=== PATIENT | male | born 1970 | race Caucasian/White ===

== ENCOUNTER → 2020-04-01 | Outpatient (NON) | payer BC, SELFPAY ==
[2020-04-01 23:01] LABS: SARS-CoV-2 RNA PCR Positive
== END | disposition home or self-care (01) ==
PROVIDERS: PCP Internal Medicine; Visit Provider Nurse Practitioner
DX: U07.1 COVID-19 (principal)
CPT/HCPCS: C9803; U0003; U0005

== ENCOUNTER 2021-07-24 10:51 | Outpatient (CLI) | payer BC, SELFPAY ==
--- NOTE | ~2021-07-24 | CT_ITS ---
EXAMINATION: CT diagnostic chest wo con DATE: 07/24/2021 11:12 INDICATION: Multiple pulmonary nodules TECHNIQUE: Computed tomography (CT) of the chest was performed without intravenous contrast. The dose -length product was 119.88 mGy-cm. Automated exposure control and iterative reconstruction technique were employed. COMPARISON: CT dated 07/05/2018 FINDINGS: Heart size is normal. No significant pleural or pericardial effusion. There are calcified g ranulomas of the thorax and spleen. No thoracic lymphadenopathy. Multiple bilateral noncalcified pulm onary nodules are stable, largest measuring 5 mm in the left lower lobe, image 67. Mild emphysema. No endobronchial lesions. No pneumothorax. No new pulmonary nodules or masses. Mild thoracic spondylosi s. IMPRESSION: 1. Stable bilateral pulmonary nodules, likely benign. Follow-up low dose CT chest in 12 months recomm ended. Reviewed, dictated and finalized at location A. IMPRESSION: 1. Stable bilateral pulmonary nodules, likely benign. Follow-up low dose CT [facility] in 12 months recommended.
== END 2021-07-24 10:52 | disposition home or self-care (01) ==
PROVIDERS: PCP Internal Medicine; Visit Provider Nurse Practitioner
DX: R91.8 Other nonspecific abnormal finding of lung field (principal); M47.814 Spondylosis without myelopathy or radiculopathy, thoracic region; J43.9 Emphysema, unspecified
CPT/HCPCS: 71250

== ENCOUNTER 2021-09-23 00:03 | Day surgery (SDC) | payer BC, SELFPAY ==
[2021-09-16 15:37] VITALS: BMI 27.9
[2021-09-23 06:45] VITALS: BP 118/68; PULSE 64; RESP 16; TEMP 36.3; O2SAT 100; BMI 27.3
[2021-09-23] MEDS: LACTATED RINGERS 1,000 ML 150 ML IV CONT (07:13)
--- NOTE | 2021-09-23 07:19 | P.PNAN_ITS ---
Anes - Initial Pre Proc Eval Procedure: Operation Date: 09/23/21 08:00 Proposed Procedures p Screening Colonoscopy - Damian Larson MD Date/Time: 09/23/21 07:19 Surgeon: Damian Larson MD Pre Op Diagnosis: neoplasm screening Patient Data Age: 51 Gender: M Height: 1.8 m Weight: 88.8 kg Last Vital Signs Temp 36.3 C L 09/23/21 06:45 Pulse 64 09/23/21 06:45 Resp 16 09/23/21 06:45 BP 118/68 09/23/21 06:45 Pulse Ox 100 09/23/21 06:45 O2 Del Method Room Air 09/23/21 06:45 Allergies Allergy/AdvReac Type Severity Reaction Status Date / Time No Known Allergies Allergy Verified 09/23/21 06:57 Home Medications Medication Instructions Recorded Confirmed Type sildenafil 50 mg tablet See Rx Instructions .Route 07/18/21 09/23/21 Rx .COMPLEX #90 tabs sodium sul 1.479 gram-potas ch See Rx Instructions PO PER PKG DIR 07/18/21 09/23/21 Rx 0.188 gram-magnes sul 0.225 gram #24 tabs tablet (Sutab) Patient hx anesthesia problems: none Family hx anesthesia problems: none Results Review: All pre-operative results and documents have been reviewed as part of the pre-operative evaluation. [facility] Past Medical History Medical History Encounter for screening and preventative care Encounter for screening for lipoid disorders Encounter for screening for other metabolic disorders Hyperlipidemia Lesion of penis Leukocytosis Pulmonary nodules Tobacco abuse Surgical History Surgical History H/O: vasectomy 07/03/2021 Family History Family History Mother Lung cancer Sibling Breast cancer Social History Social History Smoking packs per day: 0.5 Smoking cigarettes per day: 10.0 Years smoked: 10 Smoking pack-years: 5.00 Smoking status: Current every day smoker Tobacco type: cigarettes Alcohol intake: current Alcohol use details: occasional Substance use: never Substance use type: does not use Living arrangements: with family Spiritual care concerns: No Anes - Eval Final PreProcedure Day of Procedure 09/23/21 07:19 Patient weight: overweight Heart: regular rate and rhythm Lungs: clear to auscultation Airway: Mallampati scale class II Neurological: alert and oriented Last oral intake: >/= 8 hours ASA classification: II Emergent: no Anesthetic plan: proceed Anesthesia type and monitoring: general GIVS and standard monitoring Results Review: All pre-operative results and documents have been reviewed as part of the pre- operative evaluation. Informed Consent: The patient's anesthetic plan and its attendant risks and benefits were discussed with the patient/family/POA. Questions were solicited and answers provided to the satisfaction of the patient/family/POA.
--- NOTE | 2021-09-23 07:48 | PM.HPGS ---
History of Present Illness History of Present Illness Consent: Risks, benefits, and alternatives have been discussed and questions answered. Patient agrees to proceed with procedure. Chief complaint: neoplasm screening Narrative: Praful Lao is a 51 year old male here for first screening colonoscopy Review of Systems Constitutional: Constitutional: Denies headache(s) and Denies weakness Eyes: Eyes: Denies blurry vision ENT: Reports Normal hearing present, Denies headache(s) and Denies neck pain Cardiovascular: Cardiovascular: Denies chest pain and Denies dyspnea Respiratory: Respiratory: Denies dyspnea Gastrointestinal: Gastrointestinal: Reports no additional gastrointestinal complaints Genitourinary: Genitourinary: Denies dysuria Musculoskeletal: Musculoskeletal: Denies neck pain Integumentary/Breasts: Skin/Breast: Denies dry skin Neurologic: Reports Normal hearing present, Denies headache(s) and Denies weakness Psychiatric: Psychiatric: Denies anxiety Endocrine: Endocrine: Denies change in body appearance Hematologic/Lymphatic: Hematologic/Lymphatic: Denies easy bleeding Allergic/Immunologic: Allergic/Immunologic: Denies urticaria PMF Past Medical History Medical History Encounter for screening and preventative care Encounter for screening for lipoid disorders Encounter for screening for other metabolic disorders Hyperlipidemia Lesion of penis Leukocytosis Pulmonary nodules Tobacco abuse Surgical History Surgical History H/O: vasectomy 07/03/2021 Family History Family History Mother Lung cancer Sibling Breast cancer Social History Social History Smoking packs per day: 0.5 Smoking cigarettes per day: 10.0 Years smoked: 10 Smoking pack-years: 5.00 Smoking status: Current every day smoker Tobacco type: cigarettes Alcohol intake: current Alcohol use details: occasional Substance use: never Substance use type: does not use Living arrangements: with family Spiritual care concerns: No Meds Home Medications and Allergies Home Medications Medication Instructions Recorded Confirmed Type sildenafil 50 mg tablet See Rx Instructions .Route 07/18/21 09/23/21 Rx .COMPLEX #90 tabs sodium sul 1.479 gram-potas ch See Rx Instructions PO PER PKG DIR 07/18/21 09/23/21 Rx 0.188 gram-magnes sul 0.225 gram #24 tabs tablet (Sutab) Allergies Allergy/AdvReac Type Severity Reaction Status Date / Time No Known Allergies Allergy Verified 09/23/21 06:57 Vital Signs Vital Signs - 24 hr 09/23/21 06:45 Temperature 97.4 F L Pulse Rate 64 Respiratory Rate 16 Blood Pressure 118/68 Pulse Oximetry 100 Oxygen Delivery Room Air Exam Const: General: comfortable and no acute distress HENMT: General nose exam: Normal nares present Eyes: General: appearance normal, both eyes and all related structures Neck: Neck: no JVD Resp: Auscultation: clear to auscultation bilaterally Cardio: Rate: regular rate Rhythm: regular rhythm GI: Inspection: non-distended GI Palp: Yes Soft to palpation Skin: General skin exam: normal color Neuro: General: gait normal Speech: normal speech Extrem: General: normal to inspection Psych: Mental Status: mental status grossly normal Assessment and Plan Assessment and plan (1) Screening for colon cancer: Code(s): Z12.11 - Encounter for screening for malignant neoplasm of colon Status: Acute Assessment and Plan: colonoscopy
[2021-09-23 08:04] VITALS: BP 92/50; PULSE 55; RESP 20; O2SAT 96
[2021-09-23 08:14] VITALS: BP 110/74; PULSE 63; RESP 18; O2SAT 98
[2021-09-23 08:24] VITALS: BP 113/75; PULSE 60; RESP 18; O2SAT 100
== END 2021-09-23 08:31 | disposition home or self-care (01) ==
PROVIDERS: PCP Internal Medicine; Visit Provider Internal Medicine Gastroenterology
PROC: 0DJD8ZZ Inspection of Lower Intestinal Tract, Via Natural or Artificial Opening Endoscopic (ICD-10-PCS; CPT 45378; principal; 2021-09-23 08:00)
DX: Z12.11 Encounter for screening for malignant neoplasm of colon (principal); D12.3 Benign neoplasm of transverse colon; K64.8 Other hemorrhoids; E78.5 Hyperlipidemia, unspecified; R91.1 Solitary pulmonary nodule; D72.829 Elevated white blood cell count, unspecified; F17.210 Nicotine dependence, cigarettes, uncomplicated
CPT/HCPCS: 45380; 88305; J2704; J7120

== ENCOUNTER 2021-11-13 13:25 | Outpatient (CLI) | payer BC, SELFPAY ==
--- NOTE | ~2021-11-13 | MR_ITS ---
EXAMINATION: MR cervical spine wo con DATE: 11/13/2021 13:58 INDICATION: Cervical radiculopathy. TECHNIQUE: Magnetic resonance imaging (MRI) of the cervical spine was performed without intravenous c ontrast. Sequences included sagittal T2-weighted FSE, sagittal T2-weighted FS FSE, sagittal T1-weight ed FSE, axial MERGE, and axial T2-weighted FSE. COMPARISON: None FINDINGS: There is hypolordosis of cervical spine. Vertebral body heights are normal. There is mildly decreased disc height at C4-C5 and C5-C6 and moderately decreased disc height at C6-C7. The spinal c ord signal intensity is normal. The following disc levels are specifically discussed: C2-C3: There is a central protrusion. There is no uncovertebral joint osteoarthritis. There is mild b ilateral facet joint osteoarthritis. There is no neural foraminal stenosis. There is no central canal stenosis. C3-C4: There is a central protrusion. There is mild bilateral uncovertebral joint osteoarthritis. The re is mild bilateral facet joint osteoarthritis. There is mild bilateral neural foraminal stenosis. T here is mild central canal stenosis with ventral indentation of the spinal cord. C4-C5: The disc is bulging. There is moderate bilateral uncovertebral joint osteoarthritis. There is no facet joint osteoarthritis. There is mild right and moderate left neural foraminal stenosis. There is mild central canal stenosis with ventral indentation of the spinal cord. C5-C6: The disc is bulging. There is moderate bilateral uncovertebral joint osteoarthritis. There is mild bilateral facet joint osteoarthritis. There is moderate right and mild left neural foraminal radha nosis. There is mild central canal stenosis with ventral indentation of the spinal cord. C6-C7: The disc is bulging with superimposed right central extrusion. There is mild bilateral uncover tebral joint osteoarthritis. There is moderate bilateral facet joint osteoarthritis. There is moderat e right and mild left neural foraminal stenosis. There is moderate central canal stenosis with ventra l and dorsal indentation of the spinal cord. C7-T1: The disc does not extend beyond the endplate margin. There is no uncovertebral joint osteoarth ritis. There is mild bilateral facet joint osteoarthritis. There is mild left neural foraminal stenos is. There is no central canal stenosis. IMPRESSION: 1. Moderate cervical spondylosis. Reviewed, dictated and finalized at location A.
== END 2021-11-13 13:26 | disposition home or self-care (01) ==
PROVIDERS: PCP Internal Medicine; Visit Provider Nurse Practitioner
DX: M62.58 Muscle wasting and atrophy, not elsewhere classified, other site (principal); M47.22 Other spondylosis with radiculopathy, cervical region
CPT/HCPCS: 72141

== ENCOUNTER 2023-03-16 16:13 | Outpatient (CLI) | payer BC, SELFPAY ==
--- NOTE | ~2023-03-16 | CT_ITS ---
. EXAMINATION: CT brain wo con DATE: 03/16/2023 16:25 INDICATION: Aphasia For 2 days. TECHNIQUE: Computed tomography (CT) of the head was performed without intravenous contrast. The mA wa s adjusted according to patient size. Iterative reconstruction technique was employed. Exam dose: 72 6.40 mGy-cm total exam DLP. COMPARISON: None FINDINGS: Mild calcified intracranial atherosclerosis. No intracranial mass lesion or hemorrhage or cerebrovascular accident is evident. No midline shift or mass effect. Normal boyce-white matter differentiation. No subdural or epidural hematoma is detected. There is patchy soft tissue thickening of the frontoethmoid areas and ethmoid air cells bilaterally. The included paranasal sinuses are otherwise unremarkable. The mastoid air cells are normally develop ed and aerated bilaterally. No fracture or bone destruction of the cranial vault. IMPRESSION: Mild calcified intracranial atherosclerosis No acute intracranial finding Reviewed, dictated and finalized at Location A. Reviewed, dictated and finalized at location L. LS INSPECTOR
== END 2023-03-16 16:14 ==
LOC: GOSHIMG 16:14
PROVIDERS: PCP Clinical Nurse Specialist; Visit Provider Clinical Nurse Specialist
DX: R47.01 Aphasia (principal); I67.2 Cerebral atherosclerosis
CPT/HCPCS: 70450

== ENCOUNTER 2023-03-17 08:28 | Outpatient (CLI) | payer BC, SELFPAY ==
[2023-03-17 09:26] LABS: Appearance Urine Clear (Clear); Bilirubin Urine Negative (Negative); Blood Urine Negative (Negative); Color Urine Yellow (Yellow); Glucose Urine UA Negative (Negative); Ketones Urine Negative (Negative); Leukocyte Esterase Ur Negative LEU/UL (Negative); Nitrate Urine Negative (Negative); Protein Urine Negative (Negative); Specific Grav Ur 1.016 (1.001-1.035); Urobilinogen Urine 0.2 mg/dL (<2.0); pH Urine 5.5 (5.0-9.0)
[2023-03-17 09:52] LABS: Basophils Absolute Auto 0.1 K/mm3 (0.0-0.1); Basophils Percent Auto 1.2 % (0.2-1.2); Eosinophils Absolute Auto 0.5 K/mm3 (0-0.3); Eosinophils Percent Auto 7.2 % (0-4.4); Hematocrit 46.6 % (42.0-52.0); Hemoglobin 15.7 g/dL (14.0-18.0); Immature Granulocyte Absolute 0.03 K/mm3 (0.00-0.031); Immature Granulocyte Percent A 0.5 % (0-0.5); Lymphocytes Absolute Auto 1.79 K/mm3 (0.9-3.2); Lymphocytes Percent Auto 27.3 % (18.3-44.2); Mean Corpuscular HGB Conc 33.7 g/dl (32-36); Mean Corpuscular Hemoglobin 30.5 pg (26-34); Mean Corpuscular Volume 90.5 fl (80-100); Mean Platelet Volume 10.7 fl (7.4-10.4); Monocytes Absolute Auto 0.8 K/mm3 (0.1-0.6); Monocytes Percent Auto 12.4 % (2.6-8.5); Neutrophils Absolute Auto 3.4 K/mm3 (1.3-6.7); Neutrophils Percent Auto 51.4 % (45.5-73.1); Platelet Count Result 265 k/mm3 (150-375); Red Blood Count 5.15 M/mm3 (4.6-6.20); Red Cell Distribution Width 12.5 % (11.5-14.5); White Blood Count 6.6 K/mm3 (4.5-10.0)
[2023-03-17 09:58] LABS: Add Urine Microscopic? NO
[2023-03-17 10:04] LABS: Alanine Aminotransferase 27 U/L (6-50); Albumin Level 3.9 g/dL (3.5-5.1); Alkaline Phosphatase 47 U/L (38-126); Anion Gap 5 mmol/L (8-16); Aspartate Amino Transferase 29 U/L (17-59); Bilirubin,Total 0.9 mg/dL (0.2-1.3); Blood Urea Nitrogen 9 mg/dL (9-20); Calcium 9.1 mg/dL (8.4-10.2); Carbon Dioxide 27 mmol/L (22-30); Chloride 107 mmol/L (98-107); Cholesterol 215 mg/dL (0-200); Estimated Glomerular Filt Rate > 60; Glucose 87 mg/dL (65-110); HDL Direct 41 mg/dL; Potassium 4.4 mmol/L (3.4-5.0); Sodium 139 mmol/L (137-145); Triglycerides 105 mg/dL (<150)
[2023-03-17 10:15] LABS: LDL Cholesterol Direct 136 mg/dL
[2023-03-17 10:35] LABS: Prostate Specific Antigen 1.4 ng/mL (< OR = 4.0); Thyroid Stimulating Hormone 0.689 uIU/mL (0.465-4.680)
== END 2023-03-17 08:29 | disposition home or self-care (01) ==
LOC: ANHLAB 08:29
PROVIDERS: PCP Clinical Nurse Specialist; Visit Provider Clinical Nurse Specialist
DX: Z12.5 Encounter for screening for malignant neoplasm of prostate (principal); G45.9 Transient cerebral ischemic attack, unspecified; E78.5 Hyperlipidemia, unspecified
CPT/HCPCS: 36415; 80053; 80061; 81003; 84153; 84443; 85025; G0103

== ENCOUNTER 2023-03-29 12:41 | Outpatient (CLI) | payer BC, SELFPAY ==
--- NOTE | 2023-03-29 12:50 | ECHO_ITS ---
Patient Info Name: Praful Lao Age: 52 years : 1970 Gender: Male Ht: 70 in Wt: 228 lbs BSA: 2.29 m2 HR: 68 bpm BP: 129 / 72 mmHg Heart Rhythm: Sinus Rhythm Technical Quality: Fair Exam Date: 03/29/2023 12:59 PM Exam Location: Echo Lab Patient Status: Outpatient Admit Date: 03/29/2023 Staff Ordering Physician: Frances Jane-Katiuska Pulmonary Nurse Practitioner: Tammi Cavanaugh RDCS Attending Provider: Yao Brock DO Referring Physician: Lucinda CORREA; Exam Type: CA echo doppler color flow Study Info Indications - APHASIA Complete two-dimensional, color flow and Doppler transthoracic echocardiogram is performed. Summary 1. Complete two-dimensional, color flow and Doppler transthoracic echocardiogram is performed. 2. Left ventricular chamber dimension is normal. 3. Left ventricular systolic function is normal, estimated at 60-65%. 4. There is mild concentric increased left ventricular wall thickness. 5. The left ventricular diastolic function is normal. 6. No pulmonary hypertension, estimated pulmonary arterial systolic pressure is 23 mmHg. Left Ventricle Tissue doppler E/e' is not performed. Left ventricular chamber dimension is normal. Left ventricular systolic function is normal, estimated at 60-65%. There is mild concentric increased left ventricular wall thickness. The left ventricular diastolic function is normal. Right Ventricle Right ventricular systolic function is normal and with normal TAPSE 2.0 cm.. Right ventricular chamber dimension is normal. Left Atria Left atrial chamber dimension is normal. Right Atria Right atrial chamber dimension is normal. Aortic Valve The aortic valve is trileaflet. There is no aortic valve stenosis. There is no aortic valve regurgitation. Pulmonic Valve There is no pulmonic regurgitation. Mitral Valve There is no mitral valve stenosis. There is no mitral valve regurgitation. Tricuspid Valve There is no tricuspid valve regurgitation. No pulmonary hypertension, estimated pulmonary arterial systolic pressure is 23 mmHg. Pericardium/Pleural There is no pericardial effusion. Inferior Vena Cava Normal inferior vena cava with >50% collapse upon inspiration consistent with normal right atrial pressure, 5 mmHg. Aorta The aortic root size at the sinus of Valsalva is normal. Left Ventricular Outflow Tract Name Value Normal LVOT 2D LVOT Diameter 2.0 cm LVOT Doppler LVOT Peak Gradient 8 mmHg LVOT Mean Gradient 3 mmHg LVOT VTI 24 cm LVOT VTI/AV VTI Ratio 0.8 LVOT Stroke Volume 76 ml LVOT CO 4.6 l/min LVOT CI 2.0 l/min/m2 Pulmonic Valve Name Value Normal RVOT Doppler RVOT Peak Gradient 3 mmHg PV Doppler
== END 2023-03-29 12:42 | disposition home or self-care (01) ==
LOC: ANHCARD 12:45
PROVIDERS: PCP Clinical Nurse Specialist; Visit Provider Internal Medicine
DX: G45.9 Transient cerebral ischemic attack, unspecified (principal); R47.01 Aphasia
CPT/HCPCS: 93306

== ENCOUNTER 2023-03-30 06:39 | Outpatient (CLI) | payer BC, SELFPAY ==
--- NOTE | ~2023-03-30 | MR_ITS ---
EXAMINATION: MR brain/brain stem wo/w con DATE: 03/30/2023 07:52 INDICATION: Aphasia. TECHNIQUE: Magnetic resonance imaging (MRI) of the brain and brainstem was performed without and with 20 mL MultiHance intravenous contrast. COMPARISON: Head CT 03/16/2023 FINDINGS: There are scattered areas of nonspecific increased T2-weighted signal intensity in the cere bral white matter, which is within normal limits for the patient's age. There is no intracranial hemo rrhage or abnormal intracranial mass lesion. There is an old lacunar infarct in left thalamus. There is cortical increased T2-weighted signal intensity and contrast enhancement in left parietal lobe, co nsistent with subacute infarct. The ventricles are normal in size. There is mucosal thickening in the paranasal sinuses. The mastoid air cells are normal. The orbits are normal. IMPRESSION: 1. Subacute infarct in left parietal lobe. 2. 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 Reviewed, dictated and finalized at location A. WASHER
== END 2023-03-30 06:40 | disposition home or self-care (01) ==
LOC: ANHIMG 06:40
PROVIDERS: PCP Clinical Nurse Specialist; Visit Provider Clinical Nurse Specialist
DX: R47.01 Aphasia (principal); G45.9 Transient cerebral ischemic attack, unspecified; I63.81 Other cerebral infarction due to occlusion or stenosis of small artery
CPT/HCPCS: 70553; A9577

== ENCOUNTER 2023-04-07 08:39 | Outpatient (CLI) | payer BC, SELFPAY ==
--- NOTE | 2023-04-12 11:35 | WPDHOLTEREM ---
Holter/Event Monitor Holter/Event Monitor Date of procedure: 04/07/23 Holter/Event Procedure: 48 Hr Holter Monitor Indications: Cerebral infarction Conclusion: 1. 48 hour holter monitor on 04/07/23. 2. Predominant rhythm is sinus rhythm. HR range 44-133 bpm; average HR 73 bpm. HR at 44 bpm was at 05:49. 3. There are 387 premature supraventricular complexes, 3 supraventricular couplets and 31 supraventricular trigeminy. There are 9 episodes of atrial tachycardia, fastest at 169 bpm and longest lasting 6 beats. 4. There are 21 premature ventricular complexes. NO ventricular tachycardia. 5. No sinoatrial or atrioventricular blocks. No significant pauses greater than 2 seconds. 6. No symptoms available for correlation.
== END 2023-04-07 08:40 | disposition home or self-care (01) ==
PROVIDERS: PCP Clinical Nurse Specialist; Visit Provider Clinical Nurse Specialist
DX: I63.9 Cerebral infarction, unspecified (principal)
CPT/HCPCS: 93225; 93226

== ENCOUNTER 2023-04-19 15:43 | Outpatient (CLI) | payer BC, SELFPAY ==
--- NOTE | ~2023-04-19 | XR_ITS ---
EXAM: XR knee RT 3V, XR knee LT 3V DATE: 04/19/2023 16:14 HISTORY: M25.569 - Pain in unspecified knee . COMPARISON: None available. FINDINGS: Normal mineralization. No fracture or dislocation. No lytic or blastic lesion. Mild bilate ral medial and patellofemoral osteophytosis. Mild bilateral medial joint space narrowing. Small volum e bilateral knee joint fluid collections. No erosion or periosteal change. Soft tissues within normal limits. IMPRESSION: Mild bilateral bicompartmental osteoarthritis. Small bilateral knee joint effusions. Reviewed, dictated and finalized at location K. GER PHILOSOPHY IMPRESSION: Mild bilateral bicompartmental osteoarthritis. Small bilateral knee joint effusions.
== END 2023-04-19 15:44 ==
PROVIDERS: PCP Internal Medicine; Visit Provider Clinical Nurse Specialist
DX: M17.0 Bilateral primary osteoarthritis of knee (principal); M25.462 Effusion, left knee; M25.461 Effusion, right knee
CPT/HCPCS: 73562

== ENCOUNTER 2023-04-22 14:06 | Outpatient (CLI) | payer BC, SELFPAY ==
--- NOTE | ~2023-04-22 | US_ITS ---
EXAMINATION: US carotid duplex BI DATE: 04/22/2023 14:38 INDICATION: TECHNIQUE: Grayscale, color Doppler, and pulsed Doppler images of the cervical carotid arteries were obtained. The degree of vessel stenosis is placed in one of the following categories: normal, <50%, 5 0-69%, >=70% but less than near-occlusion, near-occlusion, or total occlusion. Note that percent sten osis relative to normal distal artery lumen diameter is indirectly measured from velocity measurement s as described by Rashad, et al. Radiology 2003; 229:340-346. Notes: Normal: Peak systolic velocity <125 centimeters/sec and no plaque <50%. Peak systolic velocity <125 ( EDV <40; ICA/CCA PSV ratio <2.0; used these factors only a tandem lesions or low cardiac output or co ntralateral disease) 50-69 %: PSV 125-230 (EDV 40-100; ratio 2-4) >= 70% but less than near occlusion: PSV greater than 230 (EDV > 100; ratio> 4.0) Near Occlusion: PSV that is variable; markedly narrowed lumen Occlusion: Absent flow on color/spectral Doppler and no lumen on boyce scale. COMPARISON: None. FINDINGS: RIGHT: The right common carotid artery (CCA) peak systolic velocity (PSV) is 113 cm/s. The right internal ca rotid artery (ICA) PSV is 144 cm/s. The right ICA end-diastolic velocity (EDV) is 32 cm/s. The right ICA/CCA PSV ratio is 1.3. The external carotid artery (ECA) PSV is 100 cm/s. There is antegrade flow in the right vertebral artery. LEFT: The left CCA PSV is 153 cm/s. The left ICA PSV is 96 cm/s. The left ICA EDV is 27 cm/s. The left ICA/ CCA PSV ratio is 0.6. The ECA PSV is 106 cm/s. There is antegrade flow in the left vertebral artery. IMPRESSION: 1. 50-69% stenosis in the right internal carotid artery by sonographic criteria. 2. Less than 50% stenosis in the left internal carotid artery by sonographic criteria. Reviewed, dictated and finalized at location A. NCT PHYSICS INSTRUCTOR IMPRESSION: 1. 50-69% stenosis in the right internal carotid artery by sonographic criteria . 2. Less than 50% stenosis in the left internal carotid artery by sonographic cr iteria.
== END 2023-04-22 14:07 | disposition home or self-care (01) ==
PROVIDERS: PCP Internal Medicine; Visit Provider Clinical Nurse Specialist
DX: I65.23 Occlusion and stenosis of bilateral carotid arteries (principal); R47.01 Aphasia
CPT/HCPCS: 93880

== ENCOUNTER 2023-05-19 08:29 | Outpatient (CLI) | payer BC, SELFPAY ==
--- NOTE | 2023-05-19 08:44 | ECHO_ITS ---
Patient Info Name: Praful Lao Age: 52 years : 1970 Gender: Male Ht: 71 in Wt: 224 lbs BSA: 2.28 m2 HR: 78 bpm BP: 136 / 75 mmHg Technical Quality: Fair Exam Date: 05/19/2023 8:55 AM Exam Location: Echo Lab Patient Status: Outpatient Admit Date: 05/19/2023 Staff Ordering Physician: Frances Jane Laboratory Inspector: Lesley Polanco RDCS Attending Provider: Frances Jane Referring Physician: Lucinda CORREA; Exam Type: CA echo limited w bubble study Study Info Indications - CVA Limited two-dimensional transthoracic echocardiogram is performed with agitated saline. Contrast/Agitated Saline Contrast/Ag. Saline: Agitated Saline Amount: 18.00 ml Administered By: Lesley Polanco [facility] Existing IV Access: Yes New IV Access: Left Site Condition: IV removed Summary 1. Technically limited study to perform bubble study. 2. Agitated saline injection with and without valsalva maneuver opacified right side cardiac chambers without obvious shunt to left side cardiac chambers. Atrial Septum Agitated saline injection with and without valsalva maneuver opacified right side cardiac chambers without obvious shunt to left side cardiac chambers. Technically limited study to perform bubble study. Intact interatrial septum visualized by 2D and agitated saline imaging. Report Signatures
== END 2023-05-19 08:30 | disposition home or self-care (01) ==
LOC: ANHCARD 08:31
PROVIDERS: PCP Internal Medicine; Visit Provider Clinical Nurse Specialist
DX: I63.9 Cerebral infarction, unspecified (principal)
CPT/HCPCS: 93308; 96375

== ENCOUNTER 2023-07-21 00:41 | Day surgery (SDC) | payer BC, SELFPAY ==
[2023-07-15 15:07] VITALS: BMI 32.3
--- NOTE | 2023-07-15 15:29 | PC.NURSE ---
Addendum entered by Orin Ann RN 07/16/23 11:35: PT CONTACTED AND INFORMED NOTHING TO EAT/DRINK AFTER MN DAY OF SURGERY - UNDERSTANDING VOICED Original Note: Report to the Outpatient Waiting Room, entrance under the green pavilion located off [facility], at time __7:30AM on date __07/21/23 . Planned Procedure Time: __9:30AM . Time changes happen often and if your time is changed the preop area will call you the afternoon before. - You and your visitor will be asked to self-screen and do not enter if you have any COVID symptoms. - A mask is optional within the hospital at this time. Patients may have clear liquids (water, carbonated beverages, clear teas, apple juice) until 3 hours prior to surgery with a maximum of 20 ounces. - No food from midnight until time of surgery - Infants may have breast milk until 4 hours before surgery, infant formula 6 hours prior to surgery. - Children will be allowed to drink immediately following surgery. If applicable, please bring a bottle or sippy cup to assist with drinking. Juice, water, soda, and popsicles are readily available. For infants on formula, please bring formula the day of surgery. Pacifiers are allowed. Take the following medications with a SIP of water the morning of surgery: NONE DO NOT STOP ANY OF YOUR OTHER PRESCRIPTION MEDICATIONS PRIOR TO SURGERY ?EXCEPT THE FOLLOWING Medications to discontinue per physician ___HOLD ASPIRIN PER DR ÁLVAREZ- PATIENT WILL CALL MD OFFICE TO VERIFY. HOLD ALL VITAMINS/SUPPLEMENTS 3 DAYS PRE-OP PER ANESTHESIA Date to take last dose____07/17/23 Please no make-up, nail malay, hairspray, perfume, deodorant, or body powder the day of surgery. No jewelry (including any body piercings) or valuables the day of surgery, leave them at home. Please take a shower or bath the night before, or the morning of, surgery with an antibacterial soap. Wear comfortable, loose fitting clothing. Children are encouraged to wear pajamas. - Jewelry must be removed prior to entering the operating room. Rings and piercings that are not removed may be cut off. - The hospital will not accept responsibility for valuables. - Please leave all valuables, including medications, at home the day of surgery. If you are going home after surgery, a licensed dolly driver must drive you home. - NO public transportation without another adult if you receive anesthesia. - We recommend that an adult stay with you for 24 hours following discharge. - We also recommend that you do not drive, make important decision, drink alcoholic beverages, or take any drugs that were not prescribed by your health care provider for at least 24 hours after your discharge time. For Pediatric surgeries, we recommend two adults accompany the child home. Follow any additional instructions given to you from your surgeon. If you or anyone in your household have experienced Covid symptoms in the past week, please notify your surgeon or the nurse liaison at the phone number below for possible testing. Telephone instructions given to ____PATIENT and asked if any additional questions and then verbalized understanding. Patient advised to call surgeon office or pre surgery nurse liaison [phone] if any additional questions.
--- NOTE | 2023-07-21 07:04 | PM.HPGS ---
History of Present Illness History of Present Illness Chief complaint: right middle trigger finger Narrative: Patient seen and examined in pre-operative holding area. No interval change in medical history or symptoms. Patient recalls previous discussion of benefits and alternatives to procedure. Continues to desire to proceed with right middle finger a1 corby release. Reviewed procedure, post-op expectations and risks including but not limited to bleeding, infection, injury to tendon/nerve/vessel, decreased hand function, stiffness, RSD, no change or worsening of symptoms. I discussed the possible use of assistants and their participation in the case. Patient stated understanding and signed the consent form wishing to proceed. Review of Systems Review of Systems: All systems reviewed & are unremarkable except as noted in HPI and below PMFSH Past Medical History Medical History (Updated 07/21/23 @ 08:28 by Miki Grimes DO) CVA (cerebral vascular accident) Subacute infarct in left parietal lobe. 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 Encounter for screening and preventative care Encounter for screening for lipoid disorders Encounter for screening for other metabolic disorders Hyperlipidemia Lesion of penis Leukocytosis Pulmonary nodules Tobacco abuse Surgical History Surgical History H/O: vasectomy 07/03/2021 History of shoulder surgery left Family History Family History Mother Lung cancer Sibling Breast cancer Social History Social History (Updated 04/29/23 @ 14:30 by Meghan Aponte CMA) Smoking packs per day: 1 Smoking cigarettes per day: 20.0 Years smoked: 25 Smoking pack-years: 25.00 Smoking status: Current every day smoker Tobacco type: e-cigarettes/vaping Smoking end date: 08/29/21 Additional smoking assessment comments: QUIT CIG-2021, DAILY VAPING (MEDIUM STRENGTH NICOTINE) Alcohol intake: current Alcohol use details: occasional Substance use: never Substance use type: does not use Do You Feel Safe in your Home?: Yes Lack of Transportation: No Lack of Food: Never True Current Housing: I Have Housing Concerned About Future Housing: No Difficulty Paying Gas/Electric Bills: No Difficulty Paying for Meds: No Currently Unemployed: No Education: Trade/Vocational Certificate Difficulty w/ Childcare or Family Care: No Living arrangements: with family Additional living arrangements comments: [employer] KIDS Occupation/Education: occupation 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 Spiritual care concerns: No Meds Home Medications and Allergies Home Medications Medication Instructions Recorded Confirmed Type cyclobenzaprine 10 mg tablet 10 mg PO BID PRN muscle spasm #30 06/12/22 07/15/23 Rx tabs aspirin 81 mg tablet,delayed 81 mg PO DAILY 03/30/23 07/15/23 History release glucosamine sulfate 500 mg tablet 3,000 mg PO DAILY 04/29/23 07/21/23 History (Glucosamine) atorvastatin 80 mg tablet 80 mg PO QHS #90 tabs 06/25/23 07/15/23 Rx famotidine 20 mg tablet (Pepcid AC) 20 mg PO DAILY PRN Indigestion 07/15/23 07/15/23 History tramadol 50 mg tablet 50 mg PO Q6H PRN pain #8 tabs 07/21/23 Rx Allergies Allergy/AdvReac Type Severity Reaction Status Date / Time No Known Allergies Allergy Verified 07/21/23 08:08 Exam Narrative: unchanged Assessment and Plan Assessment and plan (1) Trigger middle finger of right hand: Code(s): M65.331 - Trigger finger, right middle finger Status: Acute Assessment and Plan: cont as above
--- NOTE | 2023-07-21 07:05 | P.OP_ITS ---
Procedure Note - Detailed Date of Procedure 07/21/23 Pre-op Diagnosis right middle trigger finger Post-op Diagnosis Same Procedure Performed right middle finger a1 corby release Surgeon Perico Lopez MD [employer] alfredo de la paz pa-c Anesthesia MAC Description of Procedure INFORMED CONSENT: The patient was seen and examined and marked in the pre-op area.? The patient signed the consent form. PROCEDURE IN DETAIL:The patient taken back to OR on the stretcher in supine position. Time out performed with anesthesia, surgeon and staff agreeing on patient's name site and surgery to be performed SCDs were placed on the lower extremities and inflated. A tourniquet was placed on {right} upper extremity and antibiotics given IV After anesthesia administered sedation I injected {5}cc 1%lido and 0.5% marcaine plain at the operative site The?{right upper extremity}?was prepped and draped in sterile fashion the??{right upper extremity} was? exsanguinated with Esmarch bandage and tourniquet inflated to 250mmHg I made a longitudinal incision over the right middle finger a1 corby with 15 blade through skin and dermis. Littler scissors were used to spread down to the a1 corby. The a1 corby was identified and partially incised with a 15 blade scalpel. Littler scissors were then used to spread above and below it proximally and distally and the incision was completed entirely. The FDS and FDP tendons were inspected with a ragnell retractor and free of masses, synovitis and gliding smoothly in the sheath without crepitus or triggering. They were allowed to withdraw back into the incison which was irrigated with normal saline and closued with 4-0 chromic. A dressing of xerofrom, 4x4, jett, and an edward bandage was applied after the tourniquet was let down noting the hand was warm and well perfused. The patient was then awaken from anesthesia and transferred to the recovery room in stable condition.? Complications - none EBL- 0cc Disposition - home in stable conditions Alfredo De La Paz PA-C was essential for positioning, retraction, closure and dressing placement [facility] Billing Surgery - Charge Forward: Surgery Billing ([id number] for alfredo)
[2023-07-21 07:27] VITALS: BP 102/68; PULSE 62; RESP 16; TEMP 36.7; O2SAT 99
[2023-07-21 07:30] VITALS: BMI 31.9
[2023-07-21] MEDS: LACTATED RINGERS 1,000 ML 30 ML IV CONT (08:00)
--- NOTE | 2023-07-21 08:18 | WPDANESEPPF ---
Anes - Initial Pre Proc Eval Procedure: Operation Date: 07/21/23 09:30 Proposed Procedures p Right Middle Finger A-1 Andrez Release - Perico Lopez MD Date/Time: 07/21/23 08:18 Surgeon: Perico Lopez MD Pre Op Diagnosis: right middle trigger finger Patient Data Age: 52 Gender: M Height: 1.8 m Weight: 104 kg Last Vital Signs Temp 36.7 C 07/21/23 07:27 Pulse 62 07/21/23 07:27 Resp 16 07/21/23 07:27 BP 102/68 07/21/23 07:27 Pulse Ox 99 07/21/23 07:27 O2 Del Method Room Air 07/21/23 07:27 Allergies Allergy/AdvReac Type Severity Reaction Status Date / Time No Known Allergies Allergy Verified 07/21/23 08:08 Home Medications Medication Instructions Recorded Confirmed Type cyclobenzaprine 10 mg tablet 10 mg PO BID PRN muscle spasm #30 06/12/22 07/15/23 Rx tabs aspirin 81 mg tablet,delayed 81 mg PO DAILY 03/30/23 07/15/23 History release glucosamine sulfate 500 mg tablet 3,000 mg PO DAILY 04/29/23 07/21/23 History (Glucosamine) atorvastatin 80 mg tablet 80 mg PO QHS #90 tabs 06/25/23 07/15/23 Rx famotidine 20 mg tablet (Pepcid AC) 20 mg PO DAILY PRN Indigestion 07/15/23 07/15/23 History tramadol 50 mg tablet 50 mg PO Q6H PRN pain #8 tabs 07/21/23 Rx Patient hx anesthesia problems: none Family hx anesthesia problems: none Results Review: All pre-operative results and documents have been reviewed as part of the pre-operative evaluation. [facility] Past Medical History Medical History (Updated 07/21/23 @ 08:28 by Miki Grimes DO) CVA (cerebral vascular accident) Subacute infarct in left parietal lobe. 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 Encounter for screening and preventative care Encounter for screening for lipoid disorders Encounter for screening for other metabolic disorders Hyperlipidemia Lesion of penis Leukocytosis Pulmonary nodules Tobacco abuse Surgical History Surgical History H/O: vasectomy 07/03/2021 History of shoulder surgery left Family History Family History Mother Lung cancer Sibling Breast cancer Social History Social History (Updated 04/29/23 @ 14:30 by Meghan Aponet CMA) Smoking packs per day: 1 Smoking cigarettes per day: 20.0 Years smoked: 25 Smoking pack-years: 25.00 Smoking status: Current every day smoker Tobacco type: e-cigarettes/vaping Smoking end date: 08/29/21 Additional smoking assessment comments: QUIT CIG-2021, DAILY VAPING (MEDIUM STRENGTH NICOTINE) Alcohol intake: current Alcohol use details: occasional Substance use: never Substance use type: does not use Do You Feel Safe in your Home?: Yes Lack of Transportation: No Lack of Food: Never True Current Housing: I Have Housing Concerned About Future Housing: No Difficulty Paying Gas/Electric Bills: No Difficulty Paying for Meds: No Currently Unemployed: No Education: Trade/Vocational Certificate Difficulty w/ Childcare or Family Care: No Living arrangements: with family Additional living arrangements comments: [employer] [employer] KIDS Occupation/Education: occupation 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 Informed Consent: The patient's anesthetic plan and its attendant risks and benefits were discussed with the patient/family/
[2023-07-21] MEDS: ceFAZolin 2 GM/D5W 50 ML 2 GM/50 ML BAG IVPB (09:10)
[2023-07-21] MEDS: LIDO 1%/EPINEPHRINE/PF 1:200,000 30 ML VIAL 5 ML XX (09:19)
[2023-07-21] MEDS: BUPivacaine HCL 0.5% 10 ML AMP 5 ML INFILTRATE (09:20)
[2023-07-21 09:27] VITALS: BP 117/68; PULSE 62; RESP 16; O2SAT 97
[2023-07-21 09:50] VITALS: BP 118/65; PULSE 55; RESP 14; O2SAT 96
[2023-07-21 10:15] VITALS: BP 104/84; PULSE 58; RESP 14
== END 2023-07-21 10:25 | disposition home or self-care (01) ==
PROVIDERS: PCP Internal Medicine; Visit Provider Plastic Surgery
PROC: (CPT 26055; principal; 2023-07-21 09:30)
DX: M65.331 Trigger finger, right middle finger (principal); E78.5 Hyperlipidemia, unspecified; F17.290 Nicotine dependence, other tobacco product, uncomplicated; E66.9 Obesity, unspecified; Z68.32 Body mass index [BMI] 32.0-32.9, adult; Z79.82 Long term (current) use of aspirin; Z79.891 Long term (current) use of opiate analgesic; Z98.890 Other specified postprocedural states; Z86.79 Personal history of other diseases of the circulatory system; Z80.3 Family history of malignant neoplasm of breast; Z80.1 Family history of malignant neoplasm of trachea, bronchus and lung
CPT/HCPCS: 26055; A9270; J0690; J2704; J3010; J7120

== ENCOUNTER 2023-10-05 15:15 | Outpatient (RCR) | payer BC, SELFPAY ==
--- NOTE | 2023-09-15 08:51 | OTOPEVAL1 ---
Assessment and note entered by Varinder Tierney, YUE/Laquita, CHT Evaluation Information Assessment Status Evaluation Diagnosis Trigger finger, right middle finger Onset s/p release 07/21/23 Subjective Information Patient is right handed. s/p right middle finger trigger finger release ~8 weeks ago. He reports continued stiffness, swelling, and mild pain that limits gross gripping. 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 Reported Pain Level Pain Score 0: Self Report Additional Pain Score Comments No pain at rest. Reports at worst the finger got up to 3/10, this was after weed-eating the yard. 2/10 pain with passive extension at the PIP joint. Assessment OT Clinical Summary Patient referred to OT ~8 weeks following right middle finger trigger finger release. He presents with residual stiffness and weakness that limits full finger extension as well as reduced strength and pain with gripping activities. Skilled OT indicated to maximize functional flexibility and strength of the right hand to facilitate optimal functional use of his right, dominant hand. Plan of Care Interventions Therapeutic Exercise,Manual Therapy,Therapeutic Activities,Paraffin OT Services Indicated Yes Treatment Frequency and 1x/week for 4 visits Duration These treatments will address the objective and functional deficits as defined above. The patient will be advanced safely and appropriately in order for the patient to progress towards his/her prior level of function. Additional exercises will be introduced and as well as a comprehensive home exercise program upon discharge, if needed, ?to ensure carryover of functional gains achieved in the clinic. This treatment plan has been reviewed and agreement upon by the patient.
--- NOTE | 2023-09-15 08:51 | OPREHPOC ---
Outpatient Therapy Plan of Care This is a Multidisciplinary Plan of Care that may contain components documented by all disciplines (PT, OT, and ST.) OT Problem 1 OT Problem #1 Knowledge Deficit OT Goal 1 Goal 1. Patient to be independent with HEP. Target Visit 4 OT Problem 2 OT Problem #2 Impaired Range of Motion OT Goal 1 Goal 1. Increase active ROM of the right middle finger PIP joint to 0 degrees of extension. Target Visit 4 OT Problem 3 OT Problem #3 Impaired Strength OT Goal 1 Goal 1. Patient to be able to complete lumbrical and interossei (finger adduction) strengthening with red theraputty x20 reps with good form and technique. Target Visit 4
--- NOTE | 2023-09-28 14:55 | PCOTNOTE ---
Patient called & cancelled scheduled appointment this date.
--- NOTE | 2023-11-02 11:30 | OTOPDC ---
Assessment and note entered by Varinder Tierney, YUE/Laquita, CHT OT Discharge Notification 11/02/23 OT Clinical Summary Patient referred to OT following right middle finger trigger finger release. He attended the initial evaluation and 1 follow up session. He cancelled his OT re-eval appointment and we are unable to get ahold of him to reschedule. At his last visit, on 10/05/23, patient's middle finger PIP joint progressed to -10 extension lag, compared to -25 at the start of care. He was independent with ROM and strengthening HEP. Discharging OT today due to attendance and being unable to contact the patient.
== END 2023-11-02 14:32 | disposition home or self-care (01) ==
LOC: ANHGOSHOT 15:15
PROVIDERS: PCP Internal Medicine; Visit Provider Physician Assistant Surgical
DX: M65.331 Trigger finger, right middle finger (principal)
CPT/HCPCS: 97018; 97110; 97140; 97165